=== PATIENT | female | born 1975 | race Caucasian/White ===

== ENCOUNTER → 2016-11-11 | Outpatient (CLI) | payer OTHER ==
[~2016-11-11] MED LIST: None per pt; PROG100C16 PO; will bring list DOS
[2016-11-11 14:09] LABS: HEMOGLOBIN 13.9 g/dL (11.7-16.4); WHITE BLOOD COUNT 6.3 x10^3/uL (3.4-10)
[2016-11-11 14:19] LABS: BLOOD UREA NITROGEN 9 mg/dL (7-18)
[2016-11-11 14:23] LABS: ASPARTATE AMINO TRANSFERASE 23 U/L (15-37)
== END ==
LOC: STAR 13:19
PROVIDERS: ATTEND Obstetrics & Gynecology
DX: Z01.818 Encounter for other preprocedural examination (principal)
CPT/HCPCS: 36415; 80053; 85025

== ENCOUNTER → 2017-01-12 | Outpatient (CLI) | payer OTHER | LOC: STAR 15:21 | PROVIDERS: ATTEND Obstetrics & Gynecology Female Pelvic Medicine and Reconstructive Surgery | DX: Z02.9 Encounter for administrative examinations, unspecified (principal) ==

== ENCOUNTER 2017-01-16 07:00 | Day surgery (SDC) | payer OTHER ==
[2017-01-12 06:36] VITALS: BP 104/66
[~2017-01-16] VITALS: Ht 154.9 cm; Wt 61.9 kg
[~2017-01-16 07:00] MED LIST changes: +BUPIVACAINE/PF 0.25% ONE; +EPINEPHRINE 1 MG/ML, 1ML ONE; +NEOMY/POLYMYXIN B GU IRR. 1 ML IRRIG ONE
[2017-01-16] MEDS ORDERED: LACTATED RINGERS 1,000 ML IV SCH (07:36)
[2017-01-16 07:37] VITALS: BP 104/66
[2017-01-16 07:50] LABS: HCG UR LOT HCG7030192
[2017-01-16] MEDS ORDERED: LIDOCAINE 1%, 2ML SQ PRN (08:00)
[2017-01-16 08:10] LABS: HCG UR OBC PASS
[2017-01-16] MEDS ORDERED: MIDAZOLAM 1 MG/ML, 2ML ONE (08:31)
[2017-01-16] MEDS ORDERED: SUFentanil 50 MCG/ML, 2ML ONE (08:31)
[2017-01-16] MEDS ORDERED: LIDOCAINE-MPF 2% ,5ML ONE (08:32)
[2017-01-16] MEDS ORDERED: PROPOFOL 10 MG/ML, 20ML ONE (08:32)
[2017-01-16] MEDS ORDERED: ROCURONIUM 10 MG/ML ONE (08:34)
[2017-01-16] MEDS ORDERED: CEFOTETAN PMX 2GM/50ML 50 ML ONE (08:34)
[2017-01-16] MEDS ORDERED: NEOSTIGMINE 1 MG/ML, 10ML ONE (09:19)
[2017-01-16] MEDS ORDERED: PHENYLEPHRINE 10 MG/ML ONE (09:19)
[2017-01-16] MEDS ORDERED: DEXAMETHASONE 4 MG/ML, 1ML ONE ×2 (09:27)
[2017-01-16] MEDS ORDERED: KETOROLAC 30 MG/1 ML ONE (10:25)
[2017-01-16] MEDS ORDERED: ONDANSETRON 2MG/ML, 2ML ONE ×2 (10:25)
[2017-01-16] MEDS ORDERED: OXYcodone 5 MG/5 ML ORAL.SOL UDC ONE (11:15)
[2017-01-16] MEDS ORDERED: ACETAMINOPHEN 650 MG/20.3 ML UDC ONE (11:15)
[2017-01-16] MEDS ORDERED: ACETAMINOPHEN 325 MG TABLET ONE (11:16)
[2017-01-16] MEDS ORDERED: FENTANYL PF 100 MCG/2ML IV PRN (12:00)
[2017-01-16] MEDS ORDERED: ONDANSETRON 2MG/ML, 2ML IVPush PRN (12:00)
[2017-01-16] MEDS ORDERED: hydrALAzine 20 MG/ML, 1ML IV PRN (12:00)
[2017-01-16] MEDS ORDERED: OXYcodone 5 MG/5 ML ORAL.SOL UDC PO PRN (12:00)
[2017-01-16] MEDS ORDERED: HYDROmorphone 1 MG/ML, 1ML IV PRN (12:00)
[2017-01-16] MEDS ORDERED: ACETAMINOPHEN 325 MG TABLET PO PRN (12:00)
[2017-01-16] MEDS ORDERED: LABETALOL 5MG/ML, 20ML IV PRN (12:00)
[2017-01-16] MEDS ORDERED: PROMETHAZINE 25 MG/ML, 1ML IV PRN (12:00)
[2017-01-16] MEDS ORDERED: MEPERIDINE/PF 25MG/0.5ML IVPush PRN (12:00)
[2017-01-16] MEDS ORDERED: HYDROcodone/APAP 5/325 TABLET ONE (16:34)
[2017-01-16] MEDS ORDERED: HYDROcodone/APAP 5/325 TABLET PO ONE (17:00)
== END 2017-01-16 18:18 | disposition home or self-care (01) ==
LOC: OUT 07:00
PROVIDERS: ATTEND Obstetrics & Gynecology Female Pelvic Medicine and Reconstructive Surgery
DX: N92.1 Excessive and frequent menstruation with irregular cycle (principal); N94.6 Dysmenorrhea, unspecified; N94.10 Unspecified dyspareunia; N39.3 Stress incontinence (female) (male); D25.9 Leiomyoma of uterus, unspecified
CPT/HCPCS: 57265; 57288; 58552; 81025; 88307; C1771; J0171; J1100; J1885; J2250; J2370; J2405; J2704; J2710; J3490; J7120; S0074